=== PATIENT | male | born 1945 | race Caucasian/White ===

== ENCOUNTER → 2016-04-01 | Outpatient (CLI) | payer MEDICARE, OTHER ==
[2015-02-25 07:45] VITALS: BP 159/93
[~2016-04-01] MED LIST: AMIO200T2 PO; AMLO10TA4 PO; ASPI325T4 PO; INSU100I13 SQ; IPRA4AER IH; LEVO500T38 PO; LEVO750T5 PO; LISI-334 PO; MULT-207 PO; PRED50TA PO; VITA1TAB19 PO
== END | disposition home or self-care (01) ==
LOC: SPEC 16:41
PROVIDERS: ATTEND Podiatrist Foot & Ankle Surgery
DX: L02.416 Cutaneous abscess of left lower limb (principal); E11.42 Type 2 diabetes mellitus with diabetic polyneuropathy
CPT/HCPCS: 87071; 87075; 87205

== ENCOUNTER 2016-10-25 12:08 | Emergency (ER) | payer MEDICARE, OTHER ==
[~2016-10-25] VITALS: Ht 175.3 cm; Wt 78.0 kg
[~2016-10-25 12:08] MED LIST changes: -ASPI325T4 PO; +ASPI325T8 PO; -LEVO500T38 PO; +LEVO500T59 PO
--- NOTE | 2016-10-25 13:10 | PHYS DOC ---
Past Medical History Past Medical History: COPD, Diabetes-Type II, Heart Disease, Hypertension Additional Past Medical Histor: DILATED CARDIOMYOPATHY LT FOOT FOOT DROP Past Surgical History: Cholecystectomy Additional Past Surgical Histo: spleen/kidney, paolo in back Smokin Pack Per Day Alcohol Use: None Drug Use: None Adult General Chief Complaint Chief Complaint: NAUSEA/VOMITING/DIARRHA HPI HPI Patient is a 71 year old male who has a history of COPD not oxygen dependent does not take breathing treatments or use inhalers presents with 1 week history of cough congestion started on Levaquin; now reports 3-4 episodes of vomiting, clear to ground emesis. Denies chest pain or shortness of breath or abdominal pain. Also has a history of peripheral vascular disease and COPD and continues to smoke. 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 as a high school student Review of Systems Review of Systems Constitutional: Denies fever or chills [] Eyes: Denies change in visual acuity, redness, or eye pain [] HENT: Denies nasal congestion or sore throat [] Respiratory: Denies cough or shortness of breath [] Cardiovascular: No additional information not addressed in HPI [] GI: Denies abdominal pain, nausea, vomiting, bloody stools or diarrhea [] : Denies dysuria or hematuria [] Musculoskeletal: Denies back pain or joint pain [] Integument: Denies rash or skin lesions [] Neurologic: Denies headache, focal weakness or sensory changes [] Endocrine: Denies polyuria or polydipsia [] Current Medications Current Medications Current Medications Medications (Trade) Dose Ordered Sig/Nicola Start Time Stop Time Status Last Admin Dose Admin Info (Do NOT chart on this entry -- for MONITORING) 1 each PRN DAILY PRN 10/25/16 15:15 10/27/16 15:14 Iohexol (Omnipaque 300 Mg/ml) 75 ml STK-MED ONCE 10/25/16 15:02 10/25/16 15:03 DC Ondansetron HCl (Zofran) 4 mg 1X ONCE 10/25/16 13:15 10/25/16 13:16 DC 10/25/16 13:20 4 MG Sodium Chloride 1,000 ml @ 1,000 mls/hr 1X ONCE 10/25/16 13:15 10/25/16 14:14 DC 10/25/16 13:21 1,000 MLS/HR Allergies Allergies Allergies Coded Allergies Type Severity Reaction Last Updated Verified Penicillins Allergy Severe ANAPHYLAXIS 02/25/15 Yes Physical Exam Physical Exam Constitutional: Well developed, well nourished, no acute distress, non-toxic appearance. [] HENT: Normocephalic, atraumatic, bilateral external ears normal, oropharynx moist, no oral exudates, nose normal. [] Eyes: PERRLA, EOMI, conjunctiva normal, no discharge. [] Neck: Normal range of motion, no tenderness, supple, no stridor. [] Cardiovascular:Heart rate regular rhythm, no murmur [] Lungs & Thorax: Bilateral breath sounds clear to auscultation [] Abdomen: Bowel sounds normal, soft, no tenderness, no masses, no pulsatile masses. [] Skin: Warm, dry, no erythema, no rash. [] Back: No tenderness, no CVA tenderness. [] Extremities: No tenderness, no cyanosis, no clubbing, ROM intact, no edema. [] Neurologic: Alert and oriented X 3, normal motor function, normal sensory function, no focal deficits noted. [] Psychologic: Affect normal, judgement normal, mood normal. [] Current Patient Data Vital Signs Vital Signs Date Time Temp Pulse Resp B/P (MAP) Pulse Ox O2 Delivery O2 Flow Rate FiO2 10/25/16 12:55 97.3 77 21 154/85 (108) 95 Room Air 97.3 Lab Values Laboratory Tests Test 10/25/16 13:02 10/25/16 14:03 White Blood Count 19.5 x10^3/uL (4.0-11.0) H Red Blood Count 5.01 x10^6/uL (4.30-5.70) Hemoglobin 16.7 g/dL (13.0-17.5) Hematocrit 49.3 % (39.0-53.0) Mean Corpuscular Volume 98 fL (79-100) Mean Corpuscular Hemoglobin 33 pg (25-35) Mean Corpuscular Hemoglobin Concent 34 g/dL (31-37) Red Cell Distribution Width 13.1 % (11.5-14.5) Platelet Count 233 x10^3/uL (140-400) Neutrophils (%) (Auto) 92 % (31-73) H Lymphocytes (%) (Auto) 5 % (24-48) L Monocytes (%) (Auto) 3 % (0-9) Eosinophils (%) (Auto) 0 % (0-3) Basophils (%) (Auto) 0 % (0-3) Neutrophils # (Auto) 17.9 x10^3uL (1.8-7.7) H Lymphocytes # (Auto) 0.9 x10^3/uL (1.0-4.8) L Monocytes # (Auto) 0.6 x10^3/uL (0.0-1.1) Eosinophils # (Auto) 0.0 x10^3/uL (0.0-0.7) Basophils # (Auto) 0.1 x10^3/uL (0.0-0.2) Segmented Neutrophils % 87 % (35-66) H Band Neutrophils % 1 % (0-9) Lymphocytes % 7 % (24-48) L Monocytes % 4 % (0-10) Eosinophils % 1 % (0-5) Platelet Estimate Adequate (ADEQUATE) Sodium Level 141 mmol/L (136-145) Potassium Level 3.9 mmol/L (3.5-5.1) Chloride Level 104 mmol/L (98-107) Carbon Dioxide Level 26 mmol/L (21-32) Anion Gap 11 (6-14) Blood Urea Nitrogen 28 mg/dL (8-26) H Creatinine 1.2 mg/dL (0.7-1.3) Estimated GFR (Cockcroft-Gault) 59.9 BUN/Creatinine Ratio 23 (6-20) H Glucose Level 105 mg/dL (70-99) H Calcium Level 9.0 mg/dL (8.5-10.1) Total Bilirubin 0.9 mg/dL (0.2-1.0) Aspartate Amino Transferase (AST) 22 U/L (15-37) Alanine Aminotransferase (ALT) 30 U/L (16-63) Alkaline Phosphatase 170 U/L (46-116) H Troponin I Quantitative 0.017 ng/mL (0.000-0.055) Total Protein 7.3 g/dL (6.4-8.2) Albumin 3.8 g/dL (3.4-5.0) Albumin/Globulin Ratio 1.1 (1.0-1.7) Lipase 140 U/L (73-393) Urine Collection Type Unknown Urine Color Yellow Urine Clarity Clear Urine pH 5.5 Urine Specific [place] >=1.030 Urine Protein 100 mg/dL (NEG-TRACE) Urine Glucose (UA) Negative mg/dL (NEG) Urine Ketones (Stick) Negative mg/dL (NEG) Urine Blood Negative (NEG) Urine Nitrite Negative (NEG) Urine Bilirubin Negative (NEG) Urine Urobilinogen Dipstick 0.2 mg/dL (0.2 mg/dL) Urine Leukocyte Esterase Negative (NEG) Urine RBC 0 /HPF (0-2) Urine WBC 1-4 /HPF (0-4) Urine Bacteria 0 /HPF (0-FEW) Urine Hyaline Casts Moderate /HPF Urine Mucus Marked /LPF Laboratory Tests 10/25/16 13:02 Laboratory Tests 10/25/16 13:02 EKG EKG EKG[] sinus rhythm rate of 80 no STEMI no ischemic changes my interpretation Radiology/Procedures Radiology/Procedures Chest x-ray[ COPD no infiltrates my interpretation] Course & Med Decision Making Course & Med Decision Making Pertinent Labs and Imaging studies reviewed. (See chart for details) Discussed the case with the patient's primary care physician Dr. Wetzel who happened to be in the emergency department and visited with the patient. Reexamination 1515 I discussed lab findings with the patient and notified him that his white count was concerning only elevated and I have recommended a CAT scan of the abdomen and pelvis which she is refusing. He feels completely better has no complaints wants to go home he is requesting a switch his antibiotics to something different and then place him on steroids for his COPD. I discussed the situation with Dr. Winkler will follow-up with the patient in the next couple days. The patient appears to have decision-making capacity to refuse further diagnostic testing or admission.[] Dragon Disclaimer Dragon Disclaimer This electronic medical record was generated, in whole or in part, using a voice recognition dictation system. Departure Departure Impression: Primary Impression: COPD exacerbation Additional Impression: Vomiting Disposition: 01 HOME, SELF-CARE Condition: STABLE Referrals: JULIA WETZEL MD (PCP) Patient Instructions: Chronic Obstructive Pulmonary Disease Exacerbation, Easy- to-Read Scripts Azithromycin (AZITHROMYCIN TABLET) 250 Mg Tablet 1 PKG PO UD, #6 TAB Take 2 tablets by mouth day 1, take one tablet by mouth daily next 4 days Prov: ROZINA SWEENEY MD 10/25/16 Ondansetron (ZOFRAN ODT) 4 Mg Tab.rapdis 4 MG PO TID Y for NAUSEA/VOMITING for 4 Days, #8 TAB Prov: ROZINA SWEENEY MD 10/25/16 Prednisone (PREDNISONE) 50 Mg Tablet 1 TAB PO DAILY for 5 Days, #5 TAB Prov: ROZINA SWEENEY MD 10/25/16 Problem Qualifiers ROZINA SWEENEY MD Oct 25, 2016 13:10
[2016-10-25 13:14] LABS: BASO # 0.1 x10^3/uL (0.0-0.2); BASO % 0 % (0-3); EOS % 0 % (0-3); HEMATOCRIT 49.3 % (39.0-53.0); HEMOGLOBIN 16.7 g/dL (13.0-17.5); LYMPH # 0.9 x10^3/uL (1.0-4.8); LYMPH % 5 % (24-48); MEAN CORPUSCULAR HEMOGLOBIN 33 pg (25-35); MEAN CORPUSCULAR HGB CONC 34 g/dL (31-37); MEAN CORPUSCULAR VOLUME 98 fL (79-100); MONO % 3 % (0-9); NEUT % 92 % (31-73); PLATELET COUNT 233 x10^3/uL (140-400); RED BLOOD COUNT 5.01 x10^6/uL (4.30-5.70); RED CELL DISTRIBUTION WIDTH 13.1 % (11.5-14.5); WHITE BLOOD COUNT 19.5 x10^3/uL (4.0-11.0)
[2016-10-25] MEDS ORDERED: IV NORMAL SALINE 1000ML BAG 1,000 ML IV ONE (13:15)
[2016-10-25] MEDS ORDERED: ONDANSETRON PF 4 MG/2 ML VIAL. IV ONE (13:15)
[2016-10-25 13:24] LABS: CREATININE 1.2 mg/dL (0.7-1.3); GFR 59.9; POTASSIUM 3.9 mmol/L (3.5-5.1)
--- NOTE | 2016-10-25 13:26 | RAD ---
Chest radiograph 10/25/2016 3:04 PM Indication: Cough, dizziness Comparison: Chest 02/24/2015 Technique: Single portable upright frontal view of the chest is provided. Findings: Cardiomediastinal silhouette is within normal limits. No pleural effusions, pulmonary vascular congestion or pneumothorax. The lungs are clear. Osseous structures are normal. Impression: No acute cardiopulmonary process.
[2016-10-25 13:30] LABS: ALBUMIN 3.8 g/dL (3.4-5.0); ALBUMIN/GLOBULIN RATIO 1.1 (1.0-1.7); TOTAL BILIRUBIN 0.9 mg/dL (0.2-1.0); TOTAL PROTEIN 7.3 g/dL (6.4-8.2)
[2016-10-25 14:10] LABS: BILIRUBIN,URINE NEGATIVE (NEG); GLUCOSE,URINE NEGATIVE (NEG); NITRITE,URINE NEGATIVE (NEG); PH,URINE 5.5; PROTEIN,URINE 100 mg/dL (NEG-TRACE); UROBILINOGEN,URINE 0.2 mg/dL (0.2 mg/dL)
[2016-10-25 14:19] LABS: BACTERIA,URINE 0 /HPF (0-FEW); RBC,URINE 0 /HPF (0-2)
[2016-10-25 14:29] LABS: % EOS 1 % (0-5); PLT ESTIMATE ADEQUATE (ADEQUATE)
[2016-10-25 14:47] VITALS: BP 146/83
[2016-10-25] MEDS ORDERED: IOHEXOL 300 MG/ML 75 ML VIAL IV ONE (15:00)
[2016-10-25] MEDS ORDERED: IOHEXOL 300 MG/ML 75 ML VIAL ONE (15:02)
[2016-10-25] MEDS ORDERED: CONTRAST GIVEN MC PRN (15:15)
[2016-10-25] MEDS ORDERED: AZIT250T6 PO (15:24)
[2016-10-25] MEDS ORDERED: PRED50TA PO (15:24)
[2016-10-25] MEDS ORDERED: ONDA4TAB10 PO (15:24)
--- NOTE | 2016-10-26 08:49 | EKG ---
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
== END 2016-10-25 15:52 | disposition home or self-care (01) ==
LOC: ER 12:08
DX: J44.1 Chronic obstructive pulmonary disease with (acute) exacerbation (principal); R11.10 Vomiting, unspecified; E11.9 Type 2 diabetes mellitus without complications; I11.9 Hypertensive heart disease without heart failure; I42.0 Dilated cardiomyopathy; I73.9 Peripheral vascular disease, unspecified; F17.200 Nicotine dependence, unspecified, uncomplicated; Z88.0 Allergy status to penicillin; Z90.49 Acquired absence of other specified parts of digestive tract
CPT/HCPCS: 36415; 71010; 80053; 81001; 83690; 84484; 85007; 85025; 93005; 96361; 96374; 99285; J2405; J7030

== ENCOUNTER 2017-05-03 19:14 | Emergency (ER) | payer MEDICARE ==
[2017-05-03 19:53] LABS: BILIRUBIN,URINE NEGATIVE (NEG); CLARITY,URINE CLEAR; COLOR,URINE YELLOW; GLUCOSE,URINE NEGATIVE (NEG); NITRITE,URINE NEGATIVE (NEG); PH,URINE 5.5; PROTEIN,URINE 30 mg/dL (NEG-TRACE); UROBILINOGEN,URINE 0.2 mg/dL (0.2 mg/dL)
[2017-05-03 20:08] LABS: ADD MAN DIFF? NO
[2017-05-03 20:10] LABS: BASO # 0.2 x10^3/uL (0.0-0.2); BASO % 1 % (0-3); EOS # 0.3 x10^3/uL (0.0-0.7); EOS % 2 % (0-3); HEMATOCRIT 43.3 % (39.0-53.0); HEMOGLOBIN 14.8 g/dL (13.0-17.5); LYMPH # 2.3 x10^3/uL (1.0-4.8); LYMPH % 17 % (24-48); MEAN CORPUSCULAR HEMOGLOBIN 34 pg (25-35); MEAN CORPUSCULAR HGB CONC 34 g/dL (31-37); MEAN CORPUSCULAR VOLUME 99 fL (79-100); MONO % 7 % (0-9); NEUT % 73 % (31-73); PLATELET COUNT 244 x10^3/uL (140-400); RED BLOOD COUNT 4.37 x10^6/uL (4.30-5.70); RED CELL DISTRIBUTION WIDTH 13.3 % (11.5-14.5); WHITE BLOOD COUNT 13.8 x10^3/uL (4.0-11.0)
[2017-05-03 20:17] LABS: BACTERIA,URINE 0 /HPF (0-FEW); RBC,URINE 0 /HPF (0-2); WBC,URINE 0 /HPF (0-4)
[2017-05-03 20:21] LABS: ANION GAP 10 (6-14); BLOOD UREA NITROGEN 17 mg/dL (8-26); CALCIUM 8.7 mg/dL (8.5-10.1); CARBON DIOXIDE 25 mmol/L (21-32); CHLORIDE 106 mmol/L (98-107); CREATININE 1.3 mg/dL (0.7-1.3); GFR 54.4; GLUCOSE 255 mg/dL (70-99); POTASSIUM 3.9 mmol/L (3.5-5.1); SODIUM 141 mmol/L (136-145)
[2017-05-03 20:27] LABS: ALBUMIN 3.1 g/dL (3.4-5.0); ALK PHOS 171 U/L (46-116); ALT (SGPT) 21 U/L (16-63); AST (SGOT) 12 U/L (15-37); DIRECT BILIRUBIN 0.1 mg/dL (0.0-0.2); LIPASE 161 U/L (73-393); TOTAL BILIRUBIN 0.3 mg/dL (0.2-1.0); TOTAL PROTEIN 6.2 g/dL (6.4-8.2)
[2017-05-03 20:29] LABS: LACTIC ACID 2.1 mmol/L (0.4-2.0)
[2017-05-03 20:30] LABS: TROPONINI < 0.017 ng/mL (0.000-0.055)
[2017-05-03] MEDS ORDERED: IOHEXOL 300 MG/ML 100ML VIAL. IV (20:45)
[2017-05-03] MEDS ORDERED: CONTRAST GIVEN MC (21:00)
[2017-05-03] MEDS ORDERED: HYDROcodone/APAP 5/325MG 1 TAB TABLET (21:27)
[2017-05-03] MEDS ORDERED: HYDROcodone/APAP 5/325MG 1 TAB TABLET PO (21:30)
[2017-05-04 06:49] LABS: NEGATIVE OBC STREP NEG; POSITIVE OBC STREP POS
== END 2017-05-03 22:18 | disposition left against medical advice (07) ==
LOC: ER 19:14
DX: J02.9 Acute pharyngitis, unspecified (principal); R50.9 Fever, unspecified; R05 Cough; I11.9 Hypertensive heart disease without heart failure; E11.9 Type 2 diabetes mellitus without complications; J44.9 Chronic obstructive pulmonary disease, unspecified; F17.200 Nicotine dependence, unspecified, uncomplicated; Z90.49 Acquired absence of other specified parts of digestive tract; Z88.0 Allergy status to penicillin
CPT/HCPCS: 36415; 80048; 80076; 81001; 83605; 83690; 84484; 85025; 87070; 87880; 99284

== ENCOUNTER 2017-12-08 11:20 | Inpatient (IN) | payer MEDICARE, OTHER ==
[~2017-12-08] VITALS: Ht 177.8 cm; Wt 80.8 kg
[~2017-12-08 11:20] MED LIST changes: -AMIO200T2 PO; +AMIO200T4 PO; +AZIT250T6 PO; +CLIN300C8 PO; +ONDA4TAB10 PO
--- NOTE | 2017-12-08 12:14 | EKG ---
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
[2017-12-08 12:16] LABS: BASO # 0.2 x10^3/uL (0.0-0.2); BASO % 1 % (0-3); EOS # 0.2 x10^3/uL (0.0-0.7); EOS % 1 % (0-3); HEMATOCRIT 48.1 % (39.0-53.0); HEMOGLOBIN 16.9 g/dL (13.0-17.5); LYMPH # 2.4 x10^3/uL (1.0-4.8); LYMPH % 19 % (24-48); MEAN CORPUSCULAR HEMOGLOBIN 35 pg (25-35); MEAN CORPUSCULAR HGB CONC 35 g/dL (31-37); MEAN CORPUSCULAR VOLUME 98 fL (79-100); MONO % 7 % (0-9); NEUT # 9.2 x10^3uL (1.8-7.7); NEUT % 71 % (31-73); PLATELET COUNT 260 x10^3/uL (140-400); RED BLOOD COUNT 4.89 x10^6/uL (4.30-5.70)
[2017-12-08 12:19] LABS: CALCIUM 9.2 mg/dL (8.5-10.1); CREATININE 1.2 mg/dL (0.7-1.3); GFR 59.7; POTASSIUM 4.2 mmol/L (3.5-5.1)
[2017-12-08 12:25] LABS: ALBUMIN 3.7 g/dL (3.4-5.0); ALBUMIN/GLOBULIN RATIO 1.1 (1.0-1.7); TOTAL BILIRUBIN 0.8 mg/dL (0.2-1.0)
[2017-12-08] MEDS ORDERED: IOHEXOL 300 MG/ML 100ML VIAL. IV ONE (12:30)
[2017-12-08] MEDS ORDERED: CONTRAST GIVEN. MC PRN (12:30)
[2017-12-08 12:31] LABS: PROTHROMBIN TIME PATIENT 12.7 SEC (11.7-14.0)
[2017-12-08] MEDS ORDERED: IV NORMAL SALINE 1000ML BAG 1,000 ML IV ONE (13:00)
--- NOTE | 2017-12-08 14:10 | RAD ---
CTA of the abdomen, pelvis and both lower extremities, 12/08/2017: History: Left lower extremity pain Multidetector CT imaging was performed following an IV bolus injection of iodinated contrast material. Multiplanar reconstructions were produced including MIP images and 3-D volume rendered reconstructions of the major arteries. There is moderate atherosclerotic plaquing of the abdominal aorta without evidence of aneurysm. There is mild calcific plaquing at the origins of the celiac and superior mesenteric arteries from the aortic arch. There is moderate calcific plaquing at the left renal artery origin with mild associated luminal narrowing. There is a widely patent right renal artery with a tiny accessory right renal artery. The inferior mesenteric artery is patent. There are scattered calcified plaques in the iliac arteries bilaterally. There is extensive calcific plaquing at the left common femoral and superficial femoral artery levels. There is severe stenosis in the left common femoral artery and at the origin of the left superficial femoral artery. Multiple areas of moderate stenosis are present in the left superficial femoral artery. There is a short segment of occlusion versus high-grade stenosis at the mid left thigh level. There is moderate plaquing involving the left popliteal artery with several areas of moderate stenosis. There are numerous scattered plaques in the left lower leg arteries. The underlying arterial lumens are not clearly demonstrated at some levels due to the calcifications, however, all 3 arteries do appear to be patent On the right, there is also extensive calcific plaquing at the common femoral artery level. There appears to be approximately 70% diameter narrowing of the right common femoral artery and 60-70% diameter narrowing of the proximal right superficial femoral artery. Multiple areas of 50% stenosis are seen in the right superficial femoral artery. No severe superficial femoral stenosis is identified. There is calcific plaquing with mild stenosis at several levels in the right popliteal artery. There is three-vessel arterial runoff in the right lower leg with moderate scattered calcific plaques, similar to that seen on the left. Incidental CT findings include the presence of bilateral renal cysts. A low-density lesion noted in the superior aspect of the liver is also probably a cyst. Postsurgical changes with surgical implants are evident in the lower lumbar spine. IMPRESSION: 1. Extensive generalized atherosclerotic calcific plaquing. 2. Severe stenosis of the left common femoral artery and proximal left superficial femoral artery. 3. Multiple additional moderate left superficial femoral arterial stenoses, with occlusion versus high-grade focal stenosis at the mid thigh level. 4. Moderate stenoses in the right common femoral and proximal right superficial femoral arteries. PQRS Compliance Statement: One or more of the following individualized dose reduction techniques were utilized for this examination: 1. Automated exposure control 2. Adjustment of the mA and/or kV according to patient size 3. Use of iterative reconstruction technique
--- NOTE | 2017-12-08 14:19 | PHYS DOC ---
Past Medical History Past Medical History: COPD, Diabetes-Type II, Heart Disease, Hypertension, Other Additional Past Medical Histor: DILATED CARDIOMYOPATHY,LT FOOT DROP Past Surgical History: Cholecystectomy, Other Additional Past Surgical Histo: spleen/kidney, paolo in back Alcohol Use: None Drug Use: None Adult General Chief Complaint Chief Complaint: LOWER EXT PAIN HPI HPI Patient is a 72 year old male was brought here for evaluation of left pain and redness. Patient had this symptom on the left leg for about 2 or 3 months. However his symptoms get worse the last week. Patient is a smoker, he denies any history of atrial fibrillation. 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 He denies any chest pain, no abdominal pain, no trouble breathing. Review of Systems Review of Systems Constitutional: Denies fever or chills [] Eyes: Denies change in visual acuity, redness, or eye pain [] HENT: Denies nasal congestion or sore throat [] Respiratory: Denies cough or shortness of breath [] Cardiovascular: No additional information not addressed in HPI [] GI: Denies abdominal pain, nausea, vomiting, bloody stools or diarrhea [] : Denies dysuria or hematuria [] Musculoskeletal: positive for left leg pain Integument: left leg rash and skin lesion Neurologic: Denies headache, focal weakness or sensory changes [] Endocrine: Denies polyuria or polydipsia [] All other systems were reviewed and found to be within normal limits, except as documented in this note. Current Medications Current Medications Current Medications Medications (Trade) Dose Ordered Sig/Nicola Start Time Stop Time Status Last Admin Dose Admin Info (CONTRAST GIVEN -- Rx MONITORING) 1 each PRN DAILY PRN 12/08/17 12:30 12/10/17 12:29 Iohexol (Omnipaque 300 Mg/ml) 90 ml 1X ONCE 12/08/17 12:30 12/08/17 12:31 DC 12/08/17 12:50 90 ML Morphine Sulfate (Morphine Sulfate) 2 mg PRN Q2HR PRN 12/08/17 15:00 12/09/17 14:59 Ondansetron HCl (Zofran) 4 mg PRN Q8HRS PRN 12/08/17 15:00 12/09/17 14:59 Sodium Chloride 1,000 ml @ 1,000 mls/hr 1X ONCE 12/08/17 13:00 10/31/18 13:59 DC 12/08/17 13:14 1,000 MLS/HR Allergies Allergies Allergies Coded Allergies Type Severity Reaction Last Updated Verified Penicillins Allergy Severe ANAPHYLAXIS 02/25/15 Yes Physical Exam Physical Exam Constitutional: Well developed, well nourished, no acute distress, non-toxic appearance. [] HENT: Normocephalic, atraumatic, bilateral external ears normal, oropharynx moist, no oral exudates, nose normal. [] Eyes: PERRLA, EOMI, conjunctiva normal, no discharge. [] Neck: Normal range of motion, no tenderness, supple, no stridor. [] Cardiovascular:Heart rate regular rhythm, no murmur [] Lungs & Thorax: Bilateral breath sounds clear to auscultation [] Abdomen: Bowel sounds normal, soft, no tenderness, no masses, no pulsatile masses. [] Skin: The entire left leg just below the left knee was erythematous, tender to touch, there were several open wound on the anterior and lateral/medial surface of proximal left leg. The left calf is cold to touch but the anterior leg/hills area was warm to touch. There is no palpable left dorsalis pedis pulse but the left foot was warm to tough. Back: No tenderness, no CVA tenderness. [] Extremities: Right leg appeared normal, weak dorsalis pedis pulse. Left leg was tender, red, cold to touch on the calf area, warm on the chin and foot area. No palpable left dorsalis pedis pulse. Neurologic: Alert and oriented X 3, normal motor function, normal sensory function, no focal deficits noted. [] Psychologic: Affect normal, judgement normal, mood normal. [] Current Patient Data Vital Signs Vital Signs Date Time Temp Pulse Resp B/P (MAP) Pulse Ox O2 Delivery O2 Flow Rate FiO2 12/08/17 15:20 84 20 152/88 (109) 99 Room Air 12/08/17 11:20 97.7 97.7 Lab Values Laboratory Tests Test 12/08/17 11:50 12/08/17 13:34 White Blood Count 13.0 x10^3/uL (4.0-11.0) H Red Blood Count 4.89 x10^6/uL (4.30-5.70) Hemoglobin 16.9 g/dL (13.0-17.5) Hematocrit 48.1 % (39.0-53.0) Mean Corpuscular Volume 98 fL (79-100) Mean Corpuscular Hemoglobin 35 pg (25-35) Mean Corpuscular Hemoglobin Concent 35 g/dL (31-37) Red Cell Distribution Width 13.0 % (11.5-14.5) Platelet Count 260 x10^3/uL (140-400) Neutrophils (%) (Auto) 71 % (31-73) Lymphocytes (%) (Auto) 19 % (24-48) L Monocytes (%) (Auto) 7 % (0-9) Eosinophils (%) (Auto) 1 % (0-3) Basophils (%) (Auto) 1 % (0-3) Neutrophils # (Auto) 9.2 x10^3uL (1.8-7.7) H Lymphocytes # (Auto) 2.4 x10^3/uL (1.0-4.8) Monocytes # (Auto) 1.0 x10^3/uL (0.0-1.1) Eosinophils # (Auto) 0.2 x10^3/uL (0.0-0.7) Basophils # (Auto) 0.2 x10^3/uL (0.0-0.2) Prothrombin Time 12.7 SEC (11.7-14.0) Prothrombin Time INR 1.0 (0.8-1.1) PTT 28 SEC (24-38) Sodium Level 141 mmol/L (136-145) Potassium Level 4.2 mmol/L (3.5-5.1) Chloride Level 104 mmol/L (98-107) Carbon Dioxide Level 26 mmol/L (21-32) Anion Gap 11 (6-14) Blood Urea Nitrogen 24 mg/dL (8-26) Creatinine 1.2 mg/dL (0.7-1.3) Estimated GFR (Cockcroft-Gault) 59.7 BUN/Creatinine Ratio 20 (6-20) Glucose Level 82 mg/dL (70-99) Calcium Level 9.2 mg/dL (8.5-10.1) Total Bilirubin 0.8 mg/dL (0.2-1.0) Aspartate Amino Transferase (AST) 21 U/L (15-37) Alanine Aminotransferase (ALT) 26 U/L (16-63) Alkaline Phosphatase 178 U/L (46-116) H Total Protein 7.0 g/dL (6.4-8.2) Albumin 3.7 g/dL (3.4-5.0) Albumin/Globulin Ratio 1.1 (1.0-1.7) Glucose (Fingerstick) 58 mg/dL (70-99) L Laboratory Tests 12/08/17 11:50 Laboratory Tests 12/08/17 11:50 EKG EKG EKG: RATE OF 78 BPM, NO STEMI, LBBB.[] Radiology/Procedures Radiology/Procedures [[facility] [address] [place] [address] IMAGING REPORT Signed PATIENT: SOCORRO GABRIEL ACCOUNT: [id number] : 1945 LOCATION: ER AGE: 72 SEX: M EXAM STATUS: REG ER ORD. PHYSICIAN: LNIDA TRONCOSO DO REASON: left lower extremity pain, cold to touch PROCEDURE: CT ANGIO ABD ILEO/FEMOR RUNOFF CTA of the abdomen, pelvis and both lower extremities, 12/08/2017: History: Left lower extremity pain Multidetector CT imaging was performed following an IV bolus injection of iodinated contrast material. Multiplanar reconstructions were produced including MIP images and 3-D volume rendered reconstructions of the major arteries. There is moderate atherosclerotic plaquing of the abdominal aorta without evidence of aneurysm. There is mild calcific plaquing at the origins of the celiac and superior mesenteric arteries from the aortic arch. There is moderate calcific plaquing at the left renal artery origin with mild associated luminal narrowing. There is a widely patent right renal artery with a tiny accessory right renal artery. The inferior mesenteric artery is patent. There are scattered calcified plaques in the iliac arteries bilaterally. There is extensive calcific plaquing at the left common femoral and superficial femoral artery levels. There is severe stenosis in the left common femoral artery and at the origin of the left superficial femoral artery. Multiple areas of moderate stenosis are present in the left superficial femoral artery. There is a short segment of occlusion versus high-grade stenosis at the mid left thigh level. There is moderate plaquing involving the left popliteal artery with several areas of moderate stenosis. There are numerous scattered plaques in the left lower leg arteries. The underlying arterial lumens are not clearly demonstrated at some levels due to the calcifications, however, all 3 arteries do appear to be patent On the right, there is also extensive calcific plaquing at the common femoral artery level. There appears to be approximately 70% diameter narrowing of the right common femoral artery and 60-70% diameter narrowing of the proximal right superficial femoral artery. Multiple areas of 50% stenosis are seen in the right superficial femoral artery. No severe superficial femoral stenosis is identified. There is calcific plaquing with mild stenosis at several levels in the right popliteal artery. There is three-vessel arterial runoff in the right lower leg with moderate scattered calcific plaques, similar to that seen on the left. Incidental CT findings include the presence of bilateral renal cysts. A low-density lesion noted in the superior aspect of the liver is also probably a cyst. Postsurgical changes with surgical implants are evident in the lower lumbar spine. IMPRESSION: 1. Extensive generalized atherosclerotic calcific plaquing. 2. Severe stenosis of the left common femoral artery and proximal left superficial femoral artery. 3. Multiple additional moderate left superficial femoral arterial stenoses, with occlusion versus high-grade focal stenosis at the mid thigh level. 4. Moderate stenoses in the right common femoral and proximal right superficial femoral arteries. PQRS Compliance Statement: One or more of the following individualized dose reduction techniques were utilized for this examination: 1. Automated exposure control 2. Adjustment of the mA and/or kV according to patient size 3. Use of iterative reconstruction technique DICTATED and SIGNED BY: IMER MYERS MD DATE: 12/08/17 1189 ] Course & Med Decision Making Course & Med Decision Making Pertinent Labs and Imaging studies reviewed. (See chart for details) Dr. HOWARD, VASCULAR SURGEON, WAS CONSULTED, WILL SEE PATIENT IN THE HOSPITAL. Dragon Disclaimer Dragon Disclaimer This electronic medical record was generated, in whole or in part, using a voice recognition dictation system. Departure Departure Impression: Primary Impression: Peripheral arterial occlusive disease Additional Impression: Femoral artery occlusion, left Disposition: 09 ADMITTED INPATIENT Admitting Physician: Bina Harp Condition: STABLE Referrals: JULIA COE MD (PCP) Problem Qualifiers LINDA TRONCOSO DO Dec 08, 2017 14:18
[2017-12-08] MEDS ORDERED: ONDANSETRON PF 4 MG/2 ML VIAL. IV PRN (15:00)
[2017-12-08] MEDS ORDERED: MORPHINE SULFATE 2 MG/ML VIAL. IV PRN (15:00)
--- NOTE | 2017-12-08 15:40 | PDOC ---
Provider Note Provider Note (please see full dictation) 72 yo male with left leg pain and wasting. He has left lower leg pain with activity as well as muscle wasting over the last several years. He has new skin lesions on the medial lower leg of uncertain etiology. A CTA showed critical stenosis of the left common femoral artery with irregular plaque. He also has segmental occlusion of the left SFA and mid popliteal artery. The left distal popliteal artery is patent, but there is calcified plaque that obscures the origin of the the AT and TP trunk. It is unclear if this is causing high grade narrowing. Would recommend conventional angiogram to get better visualization of the distal runoff to determine if he is going to need distal bypass in addition to femoral endarterectomy and distal target if so. Will also get a vein mapping of both legs. MASSIEL HOWARD MD Dec 08, 2017 15:40
--- NOTE | 2017-12-08 17:04 | RAD ---
VEIN MAPPING LOWER EXT BILAT Clinical Indication: PAD/PRE-OP BYPASS Comparison: None. FINDINGS: The right and left greater and lesser saphenous veins are interrogated with compression maneuvers. The diameters are measured. Please refer to the worksheet for all measurements. The greater and lesser saphenous veins are patent. Right greater saphenous vein diameter measures 4 mm proximally and 1 mm distally. Left measures 3 mm proximally and 2 mm distally. Right lesser saphenous vein diameter is 1-3 mm. The left is 1-2 mm. IMPRESSION: Lower extremity vein mapping. Electronically signed by: Son Murray MD (12/08/2017 5:01 PM) [id number]
--- NOTE | 2017-12-08 17:06 | RAD ---
Bilateral Duplex Carotid Ultrasound: History: Preoperative bypass. Left leg weakness. Peripheral arterial disease. Technique: Grayscale, color Doppler, and spectral Doppler imaging was performed of the arteries of the neck. Findings: Peak systolic velocity in right common carotid artery is 106 cm/sec. Peak systolic velocity in the right internal carotid artery is 108 cm/sec. Maximum end-diastolic velocity in the right internal carotid artery is 30 cm/sec. Right ICA/CCA ratio is 1.02. Peak systolic velocity in the right external carotid artery is 178 cm/sec. Peak systolic velocity in left common carotid artery is 58 cm/sec. Peak systolic velocity in the left internal carotid artery is 203 cm/sec. Maximum end-diastolic velocity in the left internal carotid artery is 46 cm/sec. Left ICA/CCA ratio is 3.48. Peak systolic velocity in the left external carotid artery is 124 cm/sec. Both vertebral arteries demonstrate antegrade flow. Grayscale imaging demonstrates extensive bilateral calcified noncalcified atherosclerotic plaquing. Heavy, calcified, shadowing plaquing is seen involving both carotid bulbs. Impression: 1. Both carotid systems demonstrate heavy atherosclerotic plaquing. 2. Elevated velocities are seen in the left internal carotid artery corresponding to moderate (50-69% luminal diameter) stenosis. 3. No hemodynamically significant right internal carotid artery stenosis is identified. Note: Stenosis calculations for carotid ultrasound studies are derived from validated velocity criteria which are known to correlate with the NASCET methodology. Electronically signed by: Kapil Garrison MD (12/08/2017 5:02 PM) [facility]
[2017-12-08 17:07] VITALS: BP 162/96
[2017-12-08] MEDS ORDERED: ONDANSETRON ODT 4 MG TAB.RAPDIS. PO PRN (19:30)
[2017-12-08] MEDS ORDERED: HYDR-2758 PO (19:33)
[2017-12-08 19:42] VITALS: BP 179/88
[2017-12-08] MEDS ORDERED: DEXTROSE 50% 25 GM / 50ML DISP.SYRIN. IV PRN (19:45)
[2017-12-08] MEDS ORDERED: INSULIN GLARGINE 300 UNITS/3 ML INSULN.PEN. SQ SCH (21:00)
[2017-12-08] MEDS ORDERED: HYDROcodone/APAP 5/325MG 1 TAB TABLET PO PRN (22:30)
[2017-12-08 23:00] VITALS: BP 134/77
[2017-12-09] VITALS (9 sets, daily range): BP systolic 138–179; BP diastolic 77–88
--- NOTE | 2017-12-09 01:43 | CONS ---
DATE OF CONSULTATION: 12/08/2017 CHIEF COMPLAINT: Left leg pain. HISTORY OF PRESENT ILLNESS: The patient is a 72-year-old male with long history of smoking, who presents with a several-day history of worsening left leg pain. He describes pain in the lower leg and foot with minimal activity. He states that he was having throbbing discomfort in his leg earlier today, but that discomfort has resolved. He has chronic wasting of his left leg. He is unsure how long this has been going on. He thinks that it has been going on for the last several years. He denies a specific injury to his leg. He notes some generalized numbness in his leg for the last several years, but he still has sensation when touching the skin. He also reports recent history of areas of skin breakdown on the anterior and medial aspect of the proximal leg. He denies any itching at this location. No previous similar areas of skin breakdown. PAST MEDICAL HISTORY: 1. Hypertension. 2. Coronary artery disease. 3. Chronic obstructive pulmonary disease. 4. Diabetes. PAST SURGICAL HISTORY: 1. Cholecystectomy. 2. Splenectomy. 3. Previous kidney surgery. 4. Back surgery. CURRENT MEDICATIONS: Aspirin 325 mg daily. He is uncertain about the other medications. He states that his daughter keeps track of all of his medications. It appears that he may be on supplemental steroids as well as blood pressure medicines as well as dysrhythmia medicines. SOCIAL HISTORY: He smokes at least half pack of cigarettes daily. He denies any alcohol use. FAMILY HISTORY: Noncontributory. REVIEW OF SYSTEMS: No recent fevers, chills, chest pain or shortness of breath. He reports episode of confusion that he thinks was a mini stroke many years ago. He denies any recent unilateral weakness, numbness, visual loss, speech changes or other TIA or stroke symptoms, except for his chronic left lower leg numbness over the last few years. He denies any nausea, vomiting, diarrhea, constipation, hematochezia, melena or other GI symptoms. He has left leg pain, as described above. He has wasting of the left leg, it is also noted as above. PHYSICAL EXAMINATION: GENERAL: This is a well-developed male, in no acute distress. VITAL SIGNS: Temperature 97.7, pulse 84, blood pressure 152/88 and respirations 20. NECK: Supple. No lymphadenopathy. CARDIOVASCULAR: Regular rhythm. ABDOMEN: Soft, nontender and nondistended. No palpable masses. EXTREMITIES: He has palpable radial and right femoral pulses; left femoral pulse is nonpalpable. His popliteal and pedal pulses are nonpalpable. He has no significant edema or skin breakdown on the right lower extremity. He has significant wasting from his left knee distally. The muscles in the left calf are at least half the size of that in the right calf. He has some relatively cylindrical areas of skin elevation and induration on the anterior medial aspect of the left leg; some of these coalesced. It is unclear if this is a skin reaction or changes related to peripheral arterial disease. No distal foot ulcers. He has approximately 2-second capillary refill in the left foot and less than 2-second capillary refill in the right foot. LABORATORY DATA: Labs are significant for white blood cell 13.0, hemoglobin 16.9 and platelet count of 260,000. INR 1.0. Sodium 141, potassium 4.2, BUN 24, creatinine 1.2, chloride [address] angiogram of the abdomen and bilateral lower extremity was reviewed. This demonstrated calcified and somewhat heterogeneous plaque in the left common femoral artery, resulting in greater than 80% diameter narrowing. There is also multifocal disease in the left superficial femoral artery, resulting in segmental areas of occlusion. There is reconstitution of the left popliteal artery; however, there was area of critical stenosis in the mid left popliteal artery. The distal popliteal artery was of reasonable caliber, but there was calcified plaquing that is obscuring the origin of the left anterior tibial artery and tibioperoneal trunk. It is unclear if this is leading to significant narrowing. The tibial vessels appear relatively disease free more distally. IMPRESSION: 1. Left leg pain. 2. Peripheral arterial disease with left common femoral as well as superficial femoral and tibial artery disease, as detailed above. 3. Left lower leg wasting. It is unclear if this wasting is due to peripheral arterial disease or to some other process. 4. Left anterior and medial skin lesions. 5. Hypertension. 6. Tobaccoism. 7. Possible history of cardiomyopathy. RECOMMENDATIONS: 1. I discussed the CT angiogram findings with him in detail. I suspect that some of his leg pain is due to arterial insufficiency. This may also be contributing some to his leg wasting. 2. We would recommend a formal angiogram to better visualize the left popliteal as well as tibial vessels to determine if distal bypass graft is indicated and if indicated, the best target vessel. 3. He would likely benefit from left femoral endarterectomy with or without distal bypass pending angiogram findings. 4. Bilateral lower extremity vein mapping to check for bypass conduit. 5. Carotid ultrasound to check for concomitant carotid vascular disease in face of left leg chronic numbness that may be the result of previous cerebrovascular accident. 6. May benefit from Dermatology evaluation of the skin lesions on his anterior medial lower leg. It is unclear if there is Dermatology coverage. 7. We will need records from Dr. Wetzel office to determine his cardiac status prior to considering revascularization surgery. MASSIEL HOWARD MD DR: PHIL/mauricio JOB#: [id number] / [id number] JULIA West MD
[2017-12-09 04:26] LABS: HEMATOCRIT 42.8 % (39.0-53.0); HEMOGLOBIN 14.8 g/dL (13.0-17.5); RED BLOOD COUNT 4.34 x10^6/uL (4.30-5.70); RED CELL DISTRIBUTION WIDTH 13.3 % (11.5-14.5); WHITE BLOOD COUNT 11.9 x10^3/uL (4.0-11.0)
[2017-12-09 04:42] LABS: CALCIUM 8.7 mg/dL (8.5-10.1); CREATININE 1.4 mg/dL (0.7-1.3)
[2017-12-09] MEDS ORDERED: ASPIRIN 325 MG TABLET PO SCH (08:00)
[2017-12-09] MEDS ORDERED: INSULIN LISPRO 300 UNITS/3 ML INSULN.PEN. SQ SCH (08:00)
--- NOTE | 2017-12-09 08:43 | PDOC1 ---
H & P H&P HPI: Mr. Mac is a 72-year-old male with past mental history of type 2 diabetes , coronary artery disease with history of SC, hypertension, peripheral artery disease, nicotine dependence, who presented to the emergency room yesterday for evaluation of left lower extremity pain that is been increasing over the last number of days. He reports chronic changes of the left lower extremity including muscle wasting and numbness. He was evaluated with a CT angio of the lower extremities which showed significant stenosis throughout bilateral lower extremities. He was admitted for further evaluation by vascular surgery to evaluate for possible surgical intervention to help with his peripheral artery disease. ROS: Complete review of systems is negative negative apart from otherwise stated above. PMH: As above Family Hx: Both parents are diagnosed with cancer of unknown origin. Social Hx: Current smoker of many years, no significant alcohol use, no drug use. Surg Hx: Cholecystectomy Meds: Reviewed and reconciled Allergies: Reviewed PE: Alert, oriented, no acute distress EOMI, sclera non-icteric Neck supple RRR Decreased to auscultation throughout, no wheezes, crackles or rhonchi LLE muscle wasting Pulses of LLE non-palpable, somewhat cooler than RLE No edema Erythematous scaly plaques of LLE Calm, cooperative, mood/affect within normal limits CT Angio LEs IMPRESSION: 1. Extensive generalized atherosclerotic calcific plaquing. 2. Severe stenosis of the left common femoral artery and proximal left superficial femoral artery. 3. Multiple additional moderate left superficial femoral arterial stenoses, with occlusion versus high-grade focal stenosis at the mid thigh level. 4. Moderate stenoses in the right common femoral and proximal right superficial femoral arteries. Carotid Artery Doppler Impression: 1. Both carotid systems demonstrate heavy atherosclerotic plaquing. 2. Elevated velocities are seen in the left internal carotid artery corresponding to moderate (50-69% luminal diameter) stenosis. 3. No hemodynamically significant right internal carotid artery stenosis is identified. Assessment/Plan: Severe peripheral artery disease Coronary artery disease s/p SC Diabetes HTN HLD Nicotine dependence Vascular surgery following. Further studies today per vascular. Likely dc later today pending scheduling of surgery which would likely occur as outpatient. KEEGAN GIL MD Dec 09, 2017 08:43
[2017-12-09] MEDS ORDERED: amLODIPine BESYLATE 10 MG TABLET PO SCH (09:00)
[2017-12-09] MEDS ORDERED: AMIODARONE HCL 200 MG TABLET. PO SCH (09:00)
[2017-12-09] MEDS ORDERED: VITAMIN B COMPLEX TABLET. PO SCH (09:00)
[2017-12-09] MEDS ORDERED: MULTIVITAMIN with MINERAL TABLET. PO SCH (09:00)
[2017-12-09] MEDS ORDERED: LISINOPRIL 20 MG TABLET PO SCH (09:00)
[2017-12-09] MEDS ORDERED: INSU100I13 SQ (09:06)
[2017-12-09] MEDS ORDERED: LIDOCAINE WITH 8.4% SOD BICARB 3 ML DISP.SYRIN. ONE (09:30)
[2017-12-09] MEDS ORDERED: IODIXANOL 320 MG/ML 100 ML VIAL. ONE (09:30)
[2017-12-09] MEDS ORDERED: fentaNYL PF VIAL 100 MCG/2 ML VIAL ONE ×2 (10:15→11:16)
[2017-12-09] MEDS ORDERED: MIDAZOLAM HCL/PF 2 MG/2 ML VIAL. ONE (10:15)
[2017-12-09] MEDS ORDERED: HEPARIN for IV BOLUS 10,000 UNIT/10 ML VIAL. ONE (10:24)
[2017-12-09] MEDS ORDERED: IODIXANOL 320 MG/ML 100 ML VIAL. IART ONE (10:30)
[2017-12-09] MEDS ORDERED: LIDOCAINE WITH 8.4% SOD BICARB 3 ML DISP.SYRIN. IJ ONE (10:30)
[2017-12-09] MEDS ORDERED: fentaNYL PF VIAL 100 MCG/2 ML VIAL IV ONE (10:30)
[2017-12-09] MEDS ORDERED: MIDAZOLAM HCL/PF 2 MG/2 ML VIAL. IV ONE (10:30)
[2017-12-09] MEDS ORDERED: CONTRAST GIVEN. MC PRN (10:30)
[2017-12-09] MEDS ORDERED: IV NORMAL SALINE 1000ML BAG 1,000 ML IV SCH (11:45)
--- NOTE | 2017-12-09 12:53 | RAD ---
Left lower extremity angiography 12/09/2017 Indication: Severe left common femoral artery stenosis, densely calcified. Left superficial femoral artery occlusion. Left lower extremity angiography requested for evaluation of runoff vasculature. Discussion: The risks and benefits of the procedure were discussed the patient. Informed consent was obtained. The patient was brought to the fluoroscopy suite and placed in the supine position. A timeout procedure was performed. The right groin was prepped and draped using maximum sterile barrier technique. All elements of maximal sterile barrier technique including the use of a cap, mask, sterile gown, sterile gloves, large sterile sheet, appropriate hand hygiene, and 2% chlorhexidine for cutaneous antisepsis (or acceptable alternative antiseptic per current guidelines) were followed for this procedure. Ultrasound evaluation demonstrates the right common femoral artery appear patent. The right common femoral artery was accessed under direct ultrasound guidance, using micropuncture technique. Reference ultrasound images were saved in the medical record. 5 Japanese vascular sheath was placed. Pelvic angiography was not performed secondary to mildly elevated creatinine and adequate visualization on prior CTA. A catheter was manipulated into the left external iliac artery. Left lower extremity angiograms were performed. Angiography of the right common femoral puncture site demonstrates mild irregularity circumferential calcification seen on prior CT and ultrasound evaluation. Manual pressure was held to achieve hemostasis without complication. Findings: Significant tortuosity of the iliac vasculature was again noted. Left external iliac artery is patent. The left common femoral artery demonstrates extensive dense calcification with very high-grade stenosis and possibly short segment occlusion in its midportion. Moderate stenosis of the proximal most superficial femoral artery is seen. There is an occlusion of the proximal left SFA. There is reconstitution of the left SFA approximately 15 cm above the adductor canal. There is mild narrowing of the proximal most popliteal artery. However the more distal [id number]-hot-ssyn popliteal artery is patent. The qsflk-idj-jacy popliteal artery is patent. Moderate stenosis noted at the origin of the anterior tibial artery and tibial peroneal trunk. Beyond this, the anterior tibial artery posterior tibial artery are patent. Dorsalis pedis artery is patent. The peroneal artery is small in caliber, with a high-grade proximal stenosis. The procedure was performed under conscious sedation including continuous cardiopulmonary monitoring via a dedicated sedation nurse. [id number] sedation time: 1 hour Fluoroscopy time: 24 minutes. Dose area product: 201 Gycm2 Impression: 1. Near occlusion or possibly short segment occlusion of the left common femoral artery with extensive densely calcified plaque 2. Occlusion of the mid left SFA 3. Mild stenosis of the proximal most left popliteal artery.. Remainder of the qrwet-paj-cnhq and jexod-edp-xelc popliteal artery are patent to the level of the origin of the anterior tibial artery where there is moderate stenoses involving the proximal anterior tibial artery and tibial peroneal trunk. The more distal aspects of the posterior tibial and anterior tibial artery are patent. The peroneal artery is small multiple tendons stenoses proximally.
--- NOTE | 2017-12-09 14:48 | PDOC2 ---
CONSULT Date of Consult Date of Consult DATE: 12/09/17 TIME: 14:48 Reason for Consult Reason for Consult: chronic distal left leg pain Referring Physician Referring Physician: Dr. Bina Harp Identification/Chief Complaint Chief Complaint leg pain Source Source: Patient History of Present Illness Reason for Visit: Patient is a72 y/o male with T2DM, HTN and peripheral arterial disease presenting for increased left lower extremity pain. Over the past week the pain has intensified over baseline for the patient. He has had a CTA of the extremity done showing extensive stenosis in the left femoral artery, with short occlusion segment in the thigh. There is narrowing of the right common femoral as well. 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 He is looking for treatment of the condition for a mcfp solution. Past Medical History Cardiovascular: HTN, Other (peripheral arteria disease) Pulmonary: COPD Social History 1 pack per day Current Problem List Problem List Problems Medical Problems: (1) Femoral artery occlusion, left Status: Acute (2) Peripheral arterial occlusive disease Status: Acute Current Medications Current Medications Current Medications Iohexol (Omnipaque 300 Mg/ml) 90 ml 1X ONCE IV Last administered on at 12:50; Start 12/08/17 at 12:30; Stop 12/08/17 at 12:31; Status DC Info (CONTRAST GIVEN -- Rx MONITORING) 1 each PRN DAILY PRN MC SEE COMMENTS; Start 12/08/17 at 12:30; Stop 12/09/17 at 10:27; Status DC Sodium Chloride 1,000 ml @ 1,000 mls/hr 1X ONCE IV Last administered on 12/08at 13:14; Start 12/08/17 at 13:00; Stop 12/08/17 at 13:59; Status DC Ondansetron HCl (Zofran) 4 mg PRN Q8HRS PRN IV NAUSEA/VOMITING; Start at 15:00; Stop 12/10/17 at 14:58 Morphine Sulfate (Morphine Sulfate) 2 mg PRN Q2HR PRN IV PAIN; Start 12/08/17 at 15:00; Stop 12/10/17 at 14:58 Amiodarone HCl (Cordarone) 200 mg DAILY PO Last administered on 12/09/17at 08:34 ; Start 12/09/17 at 09:00 Amlodipine Besylate (Norvasc) 10 mg DAILY PO Last administered on 12/09/17at 08: 34; Start 12/09/17 at 09:00 Aspirin (Usha Aspirin) 325 mg DAILY08 PO Last administered on 12/09/17at 08:34 ; Start 12/09/17 at 08:00 Insulin Glargine (Lantus) 60 units HS SQ Last administered on 12/08/17at 22:26 ; Start 12/08/17 at 21:00; Stop 12/09/17 at 08:41; Status DC Lisinopril (Prinivil) 20 mg DAILY PO Last administered on 12/09/17at 08:33; Start 12/09/17 at 09:00 Ondansetron HCl (Zofran Odt) 4 mg PRN TID PRN PO NAUSEA/VOMITING; Start at 19:30 Multivitamins (Thera M Plus) 1 tab DAILY PO Last administered on 12/09/17at 08: 34; Start 12/09/17 at 09:00 Vitamin B Complex (George B) 1 tab DAILY PO Last administered on 12/09/17at 08:34 ; Start 12/09/17 at 09:00 Insulin Human Lispro (HumaLOG) 0-5 UNITS TIDWMEALS SQ ; Start 12/09/17 at 08:00 ; Stop 12/09/17 at 08:41; Status DC Dextrose (Dextrose 50%-Water Syringe) 12.5 gm PRN Q15MIN PRN IV SEE COMMENTS Last administered on 12/09/17at 06:16; Start 12/08/17 at 19:45 Acetaminophen/ Hydrocodone Bitart (Lortab 5/325) 1 tab PRN Q6HRS PRN PO PAIN Last administered on 12/08/17at 22:30; Start 12/08/17 at 22:30 Insulin Glargine (Lantus) 50 units HS SQ ; Start 12/09/17 at 21:00 Iodixanol (Visipaque 320) 100 ml STK-MED ONCE .ROUTE ; Start 12/09/17 at 09:30; Stop 12/09/17 at 09:31; Status DC Lidocaine/Sodium Bicarbonate (Buffered Lidocaine 1%) 3 ml STK-MED ONCE .ROUTE ; Start 12/09/17 at 09:30; Stop 12/09/17 at 09:31; Status DC Heparin Sodium/ Sodium Chloride 1,000 ml @ As Directed STK-MED ONCE .ROUTE ; Start 12/09/17 at 09:31; Stop 12/09/17 at 09:32; Status DC Midazolam HCl (Versed) 2 mg STK-MED ONCE .ROUTE ; Start 12/09/17 at 10:15; Stop 12/09/17 at 10:16; Status DC Fentanyl Citrate (Fentanyl 2ml Vial) 100 mcg STK-MED ONCE .ROUTE ; Start at 10:15; Stop 12/09/17 at 10:16; Status DC Heparin Sodium/ Sodium Chloride (HEPARIN for ARTERIAL LINE FLUSH) 1,000 unit 1X ONCE IART Last administered on 12/09/17at 10:30; Start 12/09/17 at 10:30; Stop 12/09/17 at 10:31; Status DC Lidocaine/Sodium Bicarbonate (Buffered Lidocaine 1%) 3 ml 1X ONCE IJ Last administered on 12/09/17at 10:30; Start 12/09/17 at 10:30; Stop 12/09/17 at 10:31 ; Status DC Midazolam HCl (Versed) 2 mg 1X ONCE IV Last administered on 12/09/17at 10:30; Start 12/09/17 at 10:30; Stop 12/09/17 at 10:31; Status DC Fentanyl Citrate (Fentanyl 2ml Vial) 100 mcg 1X ONCE IV Last administered on 12/09/17at 10:30; Start 12/09/17 at 10:30; Stop 12/09/17 at 10:31; Status DC Iodixanol (Visipaque 320) 100 ml 1X ONCE IART Last administered on 12/09/17at 10:30; Start 12/09/17 at 10:30; Stop 12/09/17 at 10:31; Status DC Heparin Sodium (Porcine) (Heparin Sodium) 10,000 unit STK-MED ONCE .ROUTE ; Start 12/09/17 at 10:24; Stop 12/09/17 at 10:25; Status DC Info (CONTRAST GIVEN -- Rx MONITORING) 1 each PRN DAILY PRN MC SEE COMMENTS; Start 12/09/17 at 10:30; Stop 12/11/17 at 10:29 Fentanyl Citrate (Fentanyl 2ml Vial) 100 mcg STK-MED ONCE .ROUTE ; Start at 11:16; Stop 12/09/17 at 11:17; Status DC Sodium Chloride 1,000 ml @ 100 mls/hr Q10H IV Last administered on 12/09/17at 11:43; Start 12/09/17 at 11:45 Active Scripts Active Clindamycin Hcl 300 Mg Capsule 1 Cap PO TID Azithromycin Tablet (Azithromycin) 250 Mg Tablet 1 Pkg PO UD Take 2 tablets by mouth day 1, take one tablet by mouth daily next 4 days Zofran Odt (Ondansetron) 4 Mg Tab.rapdis 4 Mg PO TID PRN 4 Days Prednisone 50 Mg Tablet 1 Tab PO DAILY 5 Days Prednisone 50 Mg Tablet 1 Tab PO DAILY Reported Hydrocodone-Apap 5-325 (Hydrocodone Bit/Acetaminophen) 1 Each Tablet 1 Tab PO PRN Q6HRS PRN Levofloxacin 750 Mg Tablet 1 Tab PO DAILY Multi Complete-Iron Tablet (Multivitamin/Iron/Folic Acid) 1 Each Tablet 1 Each PO DAILY B Complex (Vitamin B Complex) 1 Each Tablet 1 Each PO DAILY Norvasc (Amlodipine Besylate) 10 Mg Tablet 1 Tab PO DAILY Amiodarone Hcl 200 Mg Tablet 1 Tab PO DAILY Lisinopril 20 Mg Tablet 1 Tab PO DAILY Aspirin 325 Mg Tablet 1 Tab PO DAILY Lantus Solostar (Insulin Glargine,Hum.rec.anlog) 100 Unit/1 Ml Insuln.pen 60 Unit SQ HS Allergies Allergies: Coded Allergies: Penicillins (Verified Allergy, Severe, ANAPHYLAXIS, 02/25/15) ROS HEENT: No: Heacaches, Visual Changes, Nasal congestion, Nasal discharge Respiratory: YES: Cough (chronic cough secondary to COPD); No: Hemoptysis Cardiovascular: No Chest Pain, No Palpitations, No Edema Gastrointestinal: No Nausea, No Vomiting Musculoskeletal: Yes Pain In: (left lower leg), Yes Other Physical Exam General: Alert, Oriented X3, Cooperative, No acute distress Lungs: Other (decreaed air movement throughout) Heart: Regular rate, Normal S1, Normal S2, No murmurs Extremities: No edema, Other (1cm cicular erythematous lesions to left lower extremity. 1/4 pedal pulses b/l) Vitals VITALS Vital Signs Date Time Temp Pulse Resp B/P (MAP) Pulse Ox O2 Delivery O2 Flow Rate FiO2 12/09/17 11:55 70 22 97 Nasal Cannula 2.0 12/09/17 07:00 98.4 158/86 (110) 98.4 Labs Labs Laboratory Tests Test 12/08/17 11:50 12/08/17 13:34 12/08/17 21:45 12/09/17 03:20 White Blood Count 13.0 x10^3/uL (4.0-11.0) 11.9 x10^3/uL (4.0-11.0) Red Blood Count 4.89 x10^6/uL (4.30-5.70) 4.34 x10^6/uL (4.30-5.70) Hemoglobin 16.9 g/dL (13.0-17.5) 14.8 g/dL (13.0-17.5) Hematocrit 48.1 % (39.0-53.0) 42.8 % (39.0-53.0) Mean Corpuscular Volume 98 fL (79-100) 99 fL (79-100) Mean Corpuscular Hemoglobin 35 pg (25-35) 34 pg (25-35) Mean Corpuscular Hemoglobin Concent 35 g/dL (31-37) 35 g/dL (31-37) Red Cell Distribution Width 13.0 % (11.5-14.5) 13.3 % (11.5-14.5) Platelet Count 260 x10^3/uL (140-400) 238 x10^3/uL (140-400) Neutrophils (%) (Auto) 71 % (31-73) Lymphocytes (%) (Auto) 19 % (24-48) Monocytes (%) (Auto) 7 % (0-9) Eosinophils (%) (Auto) 1 % (0-3) Basophils (%) (Auto) 1 % (0-3) Neutrophils # (Auto) 9.2 x10^3uL (1.8-7.7) Lymphocytes # (Auto) 2.4 x10^3/uL (1.0-4.8) Monocytes # (Auto) 1.0 x10^3/uL (0.0-1.1) Eosinophils # (Auto) 0.2 x10^3/uL (0.0-0.7) Basophils # (Auto) 0.2 x10^3/uL (0.0-0.2) Prothrombin Time 12.7 SEC (11.7-14.0) Prothromb Time International Ratio 1.0 (0.8-1.1) Activated Partial Thromboplast Time 28 SEC (24-38) Sodium Level 141 mmol/L (136-145) 143 mmol/L (136-145) Potassium Level 4.2 mmol/L (3.5-5.1) 4.0 mmol/L (3.5-5.1) Chloride Level 104 mmol/L (98-107) 107 mmol/L (98-107) Carbon Dioxide Level 26 mmol/L (21-32) 28 mmol/L (21-32) Anion Gap 11 (6-14) 8 (6-14) Blood Urea Nitrogen 24 mg/dL (8-26) 24 mg/dL (8-26) Creatinine 1.2 mg/dL (0.7-1.3) 1.4 mg/dL (0.7-1.3) Estimated GFR (Cockcroft-Gault) 59.7 50.0 BUN/Creatinine Ratio 20 (6-20) Glucose Level 82 mg/dL (70-99) 82 mg/dL (70-99) Calcium Level 9.2 mg/dL (8.5-10.1) 8.7 mg/dL (8.5-10.1) Total Bilirubin 0.8 mg/dL (0.2-1.0) Aspartate Amino Transf (AST/SGOT) 21 U/L (15-37) Alanine Aminotransferase (ALT/SGPT) 26 U/L (16-63) Alkaline Phosphatase 178 U/L (46-116) Total Protein 7.0 g/dL (6.4-8.2) Albumin 3.7 g/dL (3.4-5.0) Albumin/Globulin Ratio 1.1 (1.0-1.7) Glucose (Fingerstick) 58 mg/dL (70-99) 166 mg/dL (70-99) Test 12/09/17 06:11 12/09/17 06:51 12/09/17 12:35 Glucose (Fingerstick) 70 mg/dL (70-99) 93 mg/dL (70-99) 68 mg/dL (70-99) Laboratory Tests Test 12/08/17 21:45 12/09/17 03:20 11/1/18 06:11 12/09/17 06:51 Glucose (Fingerstick) 166 mg/dL (70-99) 70 mg/dL (70-99) 93 mg/dL (70-99) White Blood Count 11.9 x10^3/uL (4.0-11.0) Red Blood Count 4.34 x10^6/uL (4.30-5.70) Hemoglobin 14.8 g/dL (13.0-17.5) Hematocrit 42.8 % (39.0-53.0) Mean Corpuscular Volume 99 fL (79-100) Mean Corpuscular Hemoglobin 34 pg (25-35) Mean Corpuscular Hemoglobin Concent 35 g/dL (31-37) Red Cell Distribution Width 13.3 % (11.5-14.5) Platelet Count 238 x10^3/uL (140-400) Sodium Level 143 mmol/L (136-145) Potassium Level 4.0 mmol/L (3.5-5.1) Chloride Level 107 mmol/L (98-107) Carbon Dioxide Level 28 mmol/L (21-32) Anion Gap 8 (6-14) Blood Urea Nitrogen 24 mg/dL (8-26) Creatinine 1.4 mg/dL (0.7-1.3) Estimated GFR (Cockcroft-Gault) 50.0 Glucose Level 82 mg/dL (70-99) Calcium Level 8.7 mg/dL (8.5-10.1) Test 12/09/17 12:35 Glucose (Fingerstick) 68 mg/dL (70-99) Assessment/Plan Assessment/Plan Pt is a vasculopath with COPD. He is compensated cardiac tony at this time. Will continue treatment recommended by primary will monitor patient for cardiac concerns vascular surgery consultation recommendations for surgery thank you for letting me take part in the careof this patient JULIA COE MD Dec 09, 2017 14:48
--- NOTE | 2017-12-09 15:39 | PDOC ---
Provider Note Provider Note Reviewed angio of left leg. Pt is a candidate for extended left common femoral- distal external iliac endarterectomy, profunda femoris endarterectomy, possible femoral to popliteal bypass depending on vein quality. (looks to small on ultrasound) Pt could be dismissed and readmitted for elective procedure. No time tomorrow. SOCORRO FLOOD II, MD Dec 09, 2017 15:39
[2017-12-09] MEDS ORDERED: INSULIN GLARGINE 300 UNITS/3 ML INSULN.PEN. SQ SCH (21:00)
== END 2017-12-09 16:12 | disposition home or self-care (01) | DRG 300 ==
LOC: ER 11:20 → 2 NORTH 14:43
PROVIDERS: ADMIT Family Medicine; ATTEND Family Medicine
PROC: B41G1ZZ Fluoroscopy of Left Lower Extremity Arteries using Low Osmolar Contrast (ICD-10-PCS; principal; 2017-12-09)
DX: E11.51 Type 2 diabetes mellitus with diabetic peripheral angiopathy without gangrene (principal); I42.0 Dilated cardiomyopathy; J44.9 Chronic obstructive pulmonary disease, unspecified; I10 Essential (primary) hypertension; I77.1 Stricture of artery; I25.10 Atherosclerotic heart disease of native coronary artery without angina pectoris; F17.210 Nicotine dependence, cigarettes, uncomplicated; E78.5 Hyperlipidemia, unspecified; L98.9 Disorder of the skin and subcutaneous tissue, unspecified; I25.2 Old myocardial infarction; Z90.49 Acquired absence of other specified parts of digestive tract; Z88.0 Allergy status to penicillin; Z90.81 Acquired absence of spleen; M62.562 Muscle wasting and atrophy, not elsewhere classified, left lower leg
CPT/HCPCS: 36246; 36415; 75635; 75710; 76937; 80048; 80053; 82962; 85025; 85027; 85610; 85730; 93005; 93880; 93970; 96360; 99152; 99153; C1713; C1769; C1892; C1894; J1644; J1815; J2250; J3010; J7030; J7042; Q9967; 99285-25